=== PATIENT | female | born 1960 | race Caucasian/White ===

== ENCOUNTER 2023-01-31 11:25 | Day surgery (SDC) | payer BC ==
[2023-01-31] MEDS ORDERED: Sodium Chloride 0.9% 10 ML Syringe FLUSH PRN (11:30)
[2023-01-31] MEDS: Lactated Ringers 1,000 ML IV SCH (11:56)
[2023-01-31] MEDS ORDERED: Midazolam 1 MG/ML 2 ML SDV ONE (12:12)
[2023-01-31] MEDS ORDERED: Propofol 200 MG/20 ML SDV ONE (12:12)
[2023-01-31 16:35] VITALS: BP 141/59; PULSE 66
== END 2023-01-31 14:10 | disposition home or self-care (01) ==
LOC: KA.SDS 11:25
PROVIDERS: ATTEND Family Medicine
DX: Z12.11 Encounter for screening for malignant neoplasm of colon (principal); D12.4 Benign neoplasm of descending colon; K64.4 Residual hemorrhoidal skin tags; N95.0 Postmenopausal bleeding; I10 Essential (primary) hypertension; I49.3 Ventricular premature depolarization; E78.2 Mixed hyperlipidemia; E11.9 Type 2 diabetes mellitus without complications; E66.01 Morbid (severe) obesity due to excess calories; B35.3 Tinea pedis; Z79.82 Long term (current) use of aspirin; Z79.899 Other long term (current) drug therapy; E78.5 Hyperlipidemia, unspecified; Z68.41 Body mass index [BMI] 40.0-44.9, adult
CPT/HCPCS: 00812; J2250; J2704; J7120